=== PATIENT | male | born 1990 | race Caucasian/White ===

== ENCOUNTER 2024-10-05 02:29 | Emergency (ER) | payer OTHER, SELFPAY ==
[2024-10-05 02:32] VITALS: BP 152/104
[2024-10-05 03:40] VITALS: BMI 30.1
--- NOTE | 2024-10-05 03:50 | ED.GENMED ---
History of Present Illness
General
Chief Complaint: Skin Problem
Source: patient
Exam Limitations: none
Time Seen by Provider: 10/05/24 03:22
Nursing documentation reviewed up to this point in time: agreed with
History of Present Illness
History of Present Illness:
This is a 34-year-old male with history of substance use disorder admits to smoking methamphetamine earlier today. He presents this morning with concern for potential STD, more specifically concern for herpes as he noted a pimple-like outbreak in
his genital region 6 months ago. He denies recurrence, denies current rash nor ulceration. He denies dysuria and urgency, denies urethral discharge.
He denies recent sexual activity in fact states he has not been sexually active for more than 8 to 10 months.
He has not had a fever nor chills, no weight loss, no cough, no abdominal pain.
He does have chronically poor dentition and has been following with a dentist. Was referred to an oral surgeon which he has not followed through with.
He was hoping to have testing for herpes although admits that he has not had an outbreak for at least the past 6 months.
He admits to smoking methamphetamine tonight but denies other drug use.
He declines assistance with substance use treatment.
Patient states he does have a primary care physician and does have healthcare coverage. He has not scheduled an appointment with his PCP for quite some time.
Past History
Past History
ED Past Medical History: Other (Opiate abuse/substance use disorder)
ED Past Surgical History: None
Social History
Tobacco: Non-smoker
Alcohol: None
Drug: IVDA (Heroin abuse) and Other (Prior history of opiate abuse, currently using methamphetamine)
Personal: Single
Living: with family
Employment: Not employed
Family History
Family History: Other (Noncontributory)
Phy Exam
Physical Exam
Physical Exam:
GENERAL: Alert , in no apparent distress. 34-year-old gentleman appears his stated age, awake and alert, pleasant, appears in no acute distress. Moderate hypertension noted initially, improving.
EYE: pupils equal and reactive. anicteric
NECK: Supple, nontender, no meningismus, no significant adenopathy.
ENT: posterior pharynx is clear, oral mucosa is moist. Several scattered dental caries. No dental tenderness. There is no gingival erythema nor evidence of abscess formation. No facial tenderness nor soft tissue swelling. TM clear b/l, nares
patent.
CARDIAC: Regular rate and rhythm. no murmur.
LUNGS: Clear breath sounds bilaterally, no acute respiratory distress, no wheezes/rales/rhonchi
ABDOMEN: Soft, nondistended, without focal tenderness, normoactive BS.
NEUROLOGICAL: Alert and oriented x3, no focal neuro deficits. Gait is velasquez and steady.
SKIN: Warm and dry, normal color, skin intact. No rash.
MUSCULOSKELETAL: No C/C/E. Venous stasis skin thickening and hemosiderin staining of right lower leg, peripheral pulses are full and equal b/l. No palpable tenderness.
PSYCH: Normal and appropriate interaction.
Course
Vital Signs
Initial and Last Documented VS:
Initial Vital Signs
Temp Pulse Resp BP Pulse Ox
98.2 F 99 16 152/104 99
10/05/24 02:32 10/05/24 02:32 10/05/24 02:32 10/05/24 02:32 10/05/24 02:32
Last Documented Vital Signs
Temp Pulse Resp BP Pulse Ox
98.2 F 94 20 149/94 100
10/05/24 02:32 10/05/24 03:59 10/05/24 03:59 10/05/24 03:59 10/05/24 03:59
MDM/Problems Addressed
Differential Diagnosis Includes:
Patient presents with concern for potential genital herpes noting a 'pimple like' rash to his genital region 6 months ago. Denies recurrence since then.
Denies sexual activity for more than 6 months perhaps longer.
No other associated symptoms and currently symptom-free.
He does admit to methamphetamine use and has a longstanding history of substance abuse. He has been offered assistance for treatment for his substance use which he declines.
Overall nontoxic in appearance. No evidence of toxidrome on exam.
Poor dentition noted but appears chronic and there is no evidence of acute dental infection on exam.
He adamantly denies suicidal thoughts or plan, denies depression.
Reports stable home environment.
Lengthy discussion with patient that at this time there is no indication for urgent laboratory testing.
I have encouraged him to follow-up with his PCP for routine screening tests.
Discussed importance of strict condom use when he does decide to be sexually active again.
Encouraged him to follow-up with his dentist as well as oral surgeon.
Chronic conditions affecting care: Psychiatric illness (Substance use disorder)
*Pulse Oximetry
Patient hypoxic: no
*Critical Care Note
Total Time (30-74mins, 75-104mins- exclusive of procedures): Not Applicable
ED Attending Note
-
Portions of this chart may have been created with voice recognition software.� Occasional wrong word or��sound alike� substitutions may have occurred due to the inherent limitations of voice recognition software.
Discharge Plan
Departure
Patient Disposition: Home (Routine Discharge)
Date of Disposition: 10/05/24
Time of Disposition: 03:50
Patient with high blood pressure during this ER visit?: Yes
Condition: Good
Discharge Problem:
concerns regarding health, Poor dentition, Methamphetamine use
Instructions: Methamphetamine, Tooth decay in adults, BLOOD PRESSURE
Prescriptions:
No Action
No Current Medications
0
Referrals:
NONE,* [Family Provider] -
Activity Restrictions/Additional Instructions:
I recommend you schedule an appointment with your primary care physician to discuss your ongoing health concerns. Routine STD screening, routine/recommended health screenings.
Follow-up with your dentist/oral surgeon for ongoing dental care.
Interventions
Interventions:
*Risk Screen - Suicide Last Done: 10/05/24 02:32
*General Assessment Last Done: 10/05/24 02:32
*Neglect/Abuse Screening Last Done: 10/05/24 02:32
ED- Fall Risk Assessment Last Done: 10/05/24 03:41
*ED COVID-19 Vaccine History Last Done: 10/05/24 03:40
*Nursing Disposition Last Done: 10/05/24 04:10
ED-Skin Assessment Last Done: 10/05/24 03:41
Discharge Date and Time
Discharge Date/Time: 10/05/24 04:13
Print Language: SAMI
[2024-10-05 03:59] VITALS: BP 149/94
== END 2024-10-05 04:13 | disposition home or self-care (01) ==
LOC: EMR 02:29
PROVIDERS: EMERGENCY PHYSICIAN Emergency Medicine
DX: F15.90 Other stimulant use, unspecified, uncomplicated (principal); K02.9 Dental caries, unspecified
CPT/HCPCS: 99282